=== PATIENT | female | born 1960 | race Caucasian/White ===

== ENCOUNTER → 2016-11-17 | Outpatient (CLI) | payer MEDICARE | LOC: MC.RAD 09:52 | DX: Z12.31 Encounter for screening mammogram for malignant neoplasm of breast (principal) ==

== ENCOUNTER 2017-10-11 19:44 | Emergency (ER) | payer MEDICARE ==
[~2017-10-11] VITALS: Ht 175.3 cm; Wt 86.4 kg
[2017-10-11 19:48] VITALS: BP 164/75; PULSE 70; TEMP 98.1
[2017-10-11] MEDS ORDERED: LYRICA 150MG C150 MG PO (20:20)
[2017-10-11] MEDS ORDERED: DESYREL DIVIDO150 M1 PO (20:20)
[2017-10-11] MEDS ORDERED: ULTRAM 50MG TAB50 MG PO (20:20)
[2017-10-11] MEDS ORDERED: FLEXERIL 1010 MG/TAB PO (20:21)
[2017-10-11] MEDS ORDERED: NORCO 325 MG-51 TAB PO (20:21)
== END 2017-10-11 20:28 | disposition home or self-care (01) ==
LOC: COL.ER 19:44
DX: T26.62XA Corrosion of cornea and conjunctival sac, left eye, initial encounter (principal)

== ENCOUNTER → 2017-11-18 | Outpatient (CLI) | payer MEDICARE ==
[~2017-11-18] MED LIST: DESYREL DIVIDO150 M1 PO; FLEXERIL 1010 MG/TAB PO; LYRICA 150MG C150 MG PO; NORCO 325 MG-51 TAB PO; ULTRAM 50MG TAB50 MG PO
== END ==
LOC: MC.RAD 09:48
DX: Z12.31 Encounter for screening mammogram for malignant neoplasm of breast (principal)

== ENCOUNTER → 2018-12-04 | Outpatient (CLI) | payer MEDICARE | LOC: MC.RAD 10:32 | DX: Z12.31 Encounter for screening mammogram for malignant neoplasm of breast (principal) ==

== ENCOUNTER → 2019-09-11 | Outpatient (CLI) | payer MEDICARE ==
[2019-09-11 17:08] LABS: BASO % 0.3 % (0.0-2.0); EOS # 0.1 (0.0-0.7); EOS % 1.9 % (0-4.0); GRAN # 3.9 (1.4-6.5); GRAN % 68.1 % (42.2-75.2); HEMATOCRIT 38.9 % (37.0-47.0); HEMOGLOBIN 13.1 g/dl (12.5-16.0); LYMPH # 1.2 (1.2-3.4); LYMPH % 21.2 % (20.0-51.0); MEAN CELL VOLUME 94 fl (80.0-100.0); MEAN CORPUSCULAR HEMOGLOBIN 32 pg (27.0-31.0); MEAN CORPUSCULAR HGB CONC 34 g/dl (33.0-37.0); MEAN PLATELET VOLUME 10.7 fl (7.4-10.4); MONO # 0.5 (0.1-0.6); MONO % 8.2 % (1.7-9.3); PLATELET COUNT 245 K/mm3 (130-400); RED BLOOD COUNT 4.14 M/mm3 (4.10-5.30); REDCELL DISTRIBUTION WIDTH-CV 13.5 % (11.5-14.5)
[2019-09-11 17:44] LABS: ERYTHROCYTE SEDIMENTATION RATE 7 mm/hr (0-30)
== END ==
LOC: COL.LAB 16:32
PROVIDERS: Orthopaedic Surgery Sports Medicine
DX: M25.561 Pain in right knee (principal)

== ENCOUNTER → 2021-05-12 | Outpatient (CLI) | payer MEDICARE | LOC: MC.RAD 13:21 | DX: Z12.31 Encounter for screening mammogram for malignant neoplasm of breast (principal) ==

== ENCOUNTER → 2022-05-25 | Outpatient (CLI) | payer MEDICARE | LOC: MC.RAD 10:30 | DX: Z12.31 Encounter for screening mammogram for malignant neoplasm of breast (principal) ==

== ENCOUNTER → 2023-07-14 | Outpatient (CLI) | payer MEDICARE | LOC: CANSCHCLI → MC.RAD 10:44 | DX: Z12.31 Encounter for screening mammogram for malignant neoplasm of breast (principal) ==

== ENCOUNTER → 2024-04-04 | Outpatient (CLI) | payer MEDICARE, OTHER | LOC: COL.RAD 12:35 | DX: Z98.1 Arthrodesis status (principal) ==